=== PATIENT | male | born 1950 | race Caucasian/White ===

== ENCOUNTER 2018-11-03 09:41 | Outpatient (REF) | payer MEDICARE, SELFPAY ==
[2018-11-07 22:06] LABS: 6-monoacetylmorphine Not Detected ng/mL (Cutoff: 25); Amphetamines Negative ng/mL (Cutoff: 500); Barbiturates Negative ng/mL (Cutoff: 200); Benzodiazepines Negative ng/mL (Cutoff: 100); Buprenorphine Not Detected ng/mL (Cutoff: 5); Cocaine Negative ng/mL (Cutoff: 150); Codeine Not Detected ng/mL (Cutoff: 25); Comment Normal; Creatinine, U 175.4 mg/dL; Dihydrocodeine Not Detected ng/mL (Cutoff: 25); EDDP Not Detected ng/mL (Cutoff: 25); Fentanyl Not Detected ng/mL (Cutoff: 2); Hydrocodone Not Detected ng/mL (Cutoff: 25); Hydromorphone Not Detected ng/mL (Cutoff: 25); Hydromorphone-3-beta-glucuroni Not Detected ng/mL (Cutoff: 100); Meperidine Not Detected ng/mL (Cutoff: 25); Methadone Not Detected ng/mL (Cutoff: 25); Morphine Not Detected ng/mL (Cutoff: 25); N-desmethyltapentadol Not Detected ng/mL (Cutoff: 50); Naloxone Not Detected ng/mL (Cutoff: 25); Norbuprenorphine Not Detected ng/mL (Cutoff: 5); Norfentanyl Not Detected ng/mL (Cutoff: 2); Norhydrocodone Not Detected ng/mL (Cutoff: 25); Normeperidine Not Detected ng/mL (Cutoff: 25); Noroxycodone Present ng/mL (Cutoff: 25); Noroxymorphone Present ng/mL (Cutoff: 25); O-desmethyltramadol Not Detected ng/mL (Cutoff: 25); Phencyclidine Negative ng/mL (Cutoff: 25); Propoxyphene Not Detected ng/mL (Cutoff: 25); Specific Gravity 1.013; Tapentadol Not Detected ng/mL (Cutoff: 25); Tetrahydrocannabinol Negative ng/mL (Cutoff: 50); Tramadol Not Detected ng/mL (Cutoff: 25); pH 6.9
== END 2018-11-03 10:01 ==
LOC: LBN 09:41
PROVIDERS: PCP Internal Medicine; Visit Provider Nurse Practitioner Family
DX: Z79.891 Long term (current) use of opiate analgesic (principal); G89.29 Other chronic pain; M48.062 Spinal stenosis, lumbar region with neurogenic claudication
CPT/HCPCS: 80307; 80364

== ENCOUNTER 2019-03-16 09:39 | Outpatient (REF) | payer MEDICARE, BC, SELFPAY ==
[2019-03-18 12:23] LABS: 6-monoacetylmorphine Not Detected ng/mL (Cutoff: 25); Amphetamines Negative ng/mL (Cutoff: 500); Barbiturates Negative ng/mL (Cutoff: 200); Benzodiazepines Negative ng/mL (Cutoff: 100); Buprenorphine Not Detected ng/mL (Cutoff: 5); Cocaine Negative ng/mL (Cutoff: 150); Codeine Not Detected ng/mL (Cutoff: 25); Comment Normal; Creatinine, U 98.5 mg/dL; Dihydrocodeine Not Detected ng/mL (Cutoff: 25); EDDP Not Detected ng/mL (Cutoff: 25); Fentanyl Not Detected ng/mL (Cutoff: 2); Hydrocodone Not Detected ng/mL (Cutoff: 25); Hydromorphone Not Detected ng/mL (Cutoff: 25); Hydromorphone-3-beta-glucuroni Not Detected ng/mL (Cutoff: 100); Meperidine Not Detected ng/mL (Cutoff: 25); Methadone Not Detected ng/mL (Cutoff: 25); Morphine Not Detected ng/mL (Cutoff: 25); N-desmethyltapentadol Not Detected ng/mL (Cutoff: 50); Naloxone Not Detected ng/mL (Cutoff: 25); Norbuprenorphine Not Detected ng/mL (Cutoff: 5); Norfentanyl Not Detected ng/mL (Cutoff: 2); Norhydrocodone Not Detected ng/mL (Cutoff: 25); Normeperidine Not Detected ng/mL (Cutoff: 25); Noroxycodone Present ng/mL (Cutoff: 25); Noroxymorphone Not Detected ng/mL (Cutoff: 25); O-desmethyltramadol Not Detected ng/mL (Cutoff: 25); Phencyclidine Negative ng/mL (Cutoff: 25); Propoxyphene Not Detected ng/mL (Cutoff: 25); Specific Gravity 1.011; Tapentadol Not Detected ng/mL (Cutoff: 25); Tetrahydrocannabinol Negative ng/mL (Cutoff: 50); Tramadol Not Detected ng/mL (Cutoff: 25); pH 6.2
== END 2019-03-16 09:59 ==
LOC: LBN 09:39
PROVIDERS: PCP Internal Medicine; Visit Provider Nurse Practitioner Family
DX: M96.1 Postlaminectomy syndrome, not elsewhere classified (principal); M54.5 Low back pain; Z79.891 Long term (current) use of opiate analgesic
CPT/HCPCS: 80307; 80364

== ENCOUNTER 2019-06-08 09:21 | Outpatient (REF) | payer MEDICARE, BC, SELFPAY ==
[2019-06-12 01:40] LABS: 6-monoacetylmorphine Not Detected ng/mL (Cutoff: 25); Amphetamines Negative ng/mL (Cutoff: 500); Barbiturates Negative ng/mL (Cutoff: 200); Benzodiazepines Negative ng/mL (Cutoff: 100); Buprenorphine Not Detected ng/mL (Cutoff: 5); Cocaine Negative ng/mL (Cutoff: 150); Codeine Not Detected ng/mL (Cutoff: 25); Comment Normal; Creatinine, U 79.3 mg/dL; Dihydrocodeine Not Detected ng/mL (Cutoff: 25); EDDP Not Detected ng/mL (Cutoff: 25); Fentanyl Not Detected ng/mL (Cutoff: 2); Hydrocodone Not Detected ng/mL (Cutoff: 25); Hydromorphone Not Detected ng/mL (Cutoff: 25); Hydromorphone-3-beta-glucuroni Not Detected ng/mL (Cutoff: 100); Meperidine Not Detected ng/mL (Cutoff: 25); Methadone Not Detected ng/mL (Cutoff: 25); Morphine Not Detected ng/mL (Cutoff: 25); N-desmethyltapentadol Not Detected ng/mL (Cutoff: 50); Naloxone Not Detected ng/mL (Cutoff: 25); Norbuprenorphine Not Detected ng/mL (Cutoff: 5); Norfentanyl Not Detected ng/mL (Cutoff: 2); Norhydrocodone Not Detected ng/mL (Cutoff: 25); Normeperidine Not Detected ng/mL (Cutoff: 25); Noroxycodone Present ng/mL (Cutoff: 25); Noroxymorphone Not Detected ng/mL (Cutoff: 25); O-desmethyltramadol Not Detected ng/mL (Cutoff: 25); Phencyclidine Negative ng/mL (Cutoff: 25); Propoxyphene Not Detected ng/mL (Cutoff: 25); Specific Gravity 1.011; Tapentadol Not Detected ng/mL (Cutoff: 25); Tetrahydrocannabinol Negative ng/mL (Cutoff: 50); Tramadol Not Detected ng/mL (Cutoff: 25); pH 5.7
== END 2019-06-08 09:41 ==
LOC: LBN 09:21
PROVIDERS: PCP Internal Medicine; Visit Provider Nurse Practitioner Family
DX: M48.062 Spinal stenosis, lumbar region with neurogenic claudication (principal); Z79.891 Long term (current) use of opiate analgesic; G89.29 Other chronic pain
CPT/HCPCS: 80307; 80364

== ENCOUNTER 2019-08-03 09:49 | Outpatient (REF) | payer MEDICARE, BC, SELFPAY ==
[2019-08-07 15:15] LABS: 6-monoacetylmorphine Not Detected ng/mL (Cutoff: 25); Amphetamines Negative ng/mL (Cutoff: 500); Barbiturates Negative ng/mL (Cutoff: 200); Benzodiazepines Negative ng/mL (Cutoff: 100); Buprenorphine Not Detected ng/mL (Cutoff: 5); Cocaine Negative ng/mL (Cutoff: 150); Codeine Not Detected ng/mL (Cutoff: 25); Comment Normal; Creatinine, U 87.7 mg/dL; Dihydrocodeine Not Detected ng/mL (Cutoff: 25); EDDP Not Detected ng/mL (Cutoff: 25); Fentanyl Not Detected ng/mL (Cutoff: 2); Hydrocodone Not Detected ng/mL (Cutoff: 25); Hydromorphone Not Detected ng/mL (Cutoff: 25); Hydromorphone-3-beta-glucuroni Not Detected ng/mL (Cutoff: 100); Meperidine Not Detected ng/mL (Cutoff: 25); Methadone Not Detected ng/mL (Cutoff: 25); Morphine Not Detected ng/mL (Cutoff: 25); N-desmethyltapentadol Not Detected ng/mL (Cutoff: 50); Naloxone Not Detected ng/mL (Cutoff: 25); Norbuprenorphine Not Detected ng/mL (Cutoff: 5); Norfentanyl Not Detected ng/mL (Cutoff: 2); Norhydrocodone Not Detected ng/mL (Cutoff: 25); Normeperidine Not Detected ng/mL (Cutoff: 25); Noroxycodone Present ng/mL (Cutoff: 25); Noroxymorphone Not Detected ng/mL (Cutoff: 25); O-desmethyltramadol Not Detected ng/mL (Cutoff: 25); Phencyclidine Negative ng/mL (Cutoff: 25); Propoxyphene Not Detected ng/mL (Cutoff: 25); Tapentadol Not Detected ng/mL (Cutoff: 25); Tetrahydrocannabinol Negative ng/mL (Cutoff: 50); Tramadol Not Detected ng/mL (Cutoff: 25)
== END 2019-08-03 10:09 ==
LOC: LBN 09:49
PROVIDERS: PCP Internal Medicine; Visit Provider Nurse Practitioner Family
DX: M48.062 Spinal stenosis, lumbar region with neurogenic claudication (principal); G89.29 Other chronic pain; Z79.891 Long term (current) use of opiate analgesic
CPT/HCPCS: 80307; 80364

== ENCOUNTER 2019-11-01 10:33 | Outpatient (REF) | payer MEDICARE, BC, SELFPAY ==
[2019-11-04 08:45] LABS: 2-Hydroxy Ethyl Flurazepam Not Detected ng/mL (Cutoff: 10); 6-monoacetylmorphine Not Detected ng/mL (Cutoff: 25); Alpha-Hydroxy Midazolam Not Detected ng/mL (Cutoff: 10); Alpha-Hydroxy Triazolam Not Detected ng/mL (Cutoff: 10); Alpha-Hydroxyalprazolam Not Detected ng/mL (Cutoff: 10); Alpha-OH-alprazolam Glucuronid Not Detected ng/mL (Cutoff: 50); Alprazolam Not Detected ng/mL (Cutoff: 10); Amphetamines Negative ng/mL (Cutoff: 500); Barbiturates Negative ng/mL (Cutoff: 200); Buprenorphine Not Detected ng/mL (Cutoff: 5); Chlordiazepoxide Not Detected ng/mL (Cutoff: 10); Clobazam Not Detected ng/mL (Cutoff: 10); Clonazepam Not Detected ng/mL (Cutoff: 10); Cocaine Negative ng/mL (Cutoff: 150); Codeine Not Detected ng/mL (Cutoff: 25); Comment Normal; Creatinine, U 106.2 mg/dL; Diazepam Not Detected ng/mL (Cutoff: 10); Dihydrocodeine Not Detected ng/mL (Cutoff: 25); EDDP Not Detected ng/mL (Cutoff: 25); Fentanyl Not Detected ng/mL (Cutoff: 2); Flurazepam Not Detected ng/mL (Cutoff: 10); Hydrocodone Not Detected ng/mL (Cutoff: 25); Hydromorphone Not Detected ng/mL (Cutoff: 25); Hydromorphone-3-beta-glucuroni Not Detected ng/mL (Cutoff: 100); Lorazepam Not Detected ng/mL (Cutoff: 10); Lorazepam Glucuronide Not Detected ng/mL (Cutoff: 50); Meperidine Not Detected ng/mL (Cutoff: 25); Methadone Not Detected ng/mL (Cutoff: 25); Midazolam Not Detected ng/mL (Cutoff: 10); Morphine Not Detected ng/mL (Cutoff: 25); N-Desmethylclobazam Not Detected ng/mL (Cutoff: 200); N-desmethyltapentadol Not Detected ng/mL (Cutoff: 50); Naloxone Not Detected ng/mL (Cutoff: 25); Norbuprenorphine Not Detected ng/mL (Cutoff: 5); Norfentanyl Not Detected ng/mL (Cutoff: 2); Norhydrocodone Not Detected ng/mL (Cutoff: 25); Normeperidine Not Detected ng/mL (Cutoff: 25); Noroxycodone Present ng/mL (Cutoff: 25); Noroxymorphone Present ng/mL (Cutoff: 25); O-desmethyltramadol Not Detected ng/mL (Cutoff: 25); Oxazepam Glucuronide Not Detected ng/mL (Cutoff: 50); Phencyclidine Negative ng/mL (Cutoff: 25); Prazepam Not Detected ng/mL (Cutoff: 10); Propoxyphene Not Detected ng/mL (Cutoff: 25); Specific Gravity 1.013; Tapentadol Not Detected ng/mL (Cutoff: 25); Temazepam Not Detected ng/mL (Cutoff: 10); Temazepam Glucuronide Not Detected ng/mL (Cutoff: 50); Tetrahydrocannabinol Negative ng/mL (Cutoff: 50); Tramadol Not Detected ng/mL (Cutoff: 25); Triazolam Not Detected ng/mL (Cutoff: 10); Zolpidem Phenyl-4-Carboxy acid Not Detected ng/mL (Cutoff: 10); pH 6.2
== END 2019-11-01 10:53 ==
LOC: LBN 10:33
PROVIDERS: PCP Family Medicine; Visit Provider Nurse Practitioner Family
DX: G89.29 Other chronic pain (principal); Z79.891 Long term (current) use of opiate analgesic
CPT/HCPCS: 80307; 80347; 80364

== ENCOUNTER 2020-04-05 12:13 | Outpatient (REF) | payer MEDICARE, BC, SELFPAY ==
[2020-04-09 02:23] LABS: 2-Hydroxy Ethyl Flurazepam Not Detected ng/mL (Cutoff: 10); 6-monoacetylmorphine Not Detected ng/mL (Cutoff: 25); Alpha-Hydroxy Midazolam Not Detected ng/mL (Cutoff: 10); Alpha-Hydroxy Triazolam Not Detected ng/mL (Cutoff: 10); Alpha-Hydroxyalprazolam Not Detected ng/mL (Cutoff: 10); Alpha-OH-alprazolam Glucuronid Not Detected ng/mL (Cutoff: 50); Alprazolam Not Detected ng/mL (Cutoff: 10); Amphetamines Negative ng/mL (Cutoff: 500); Barbiturates Negative ng/mL (Cutoff: 200); Buprenorphine Not Detected ng/mL (Cutoff: 5); Chlordiazepoxide Not Detected ng/mL (Cutoff: 10); Clobazam Not Detected ng/mL (Cutoff: 10); Clonazepam Not Detected ng/mL (Cutoff: 10); Cocaine Negative ng/mL (Cutoff: 150); Codeine Not Detected ng/mL (Cutoff: 25); Comment Normal; Creatinine, U 81.9 mg/dL; Diazepam Not Detected ng/mL (Cutoff: 10); Dihydrocodeine Not Detected ng/mL (Cutoff: 25); EDDP Not Detected ng/mL (Cutoff: 25); Fentanyl Not Detected ng/mL (Cutoff: 2); Flurazepam Not Detected ng/mL (Cutoff: 10); Hydrocodone Not Detected ng/mL (Cutoff: 25); Hydromorphone Not Detected ng/mL (Cutoff: 25); Hydromorphone-3-beta-glucuroni Not Detected ng/mL (Cutoff: 100); Lorazepam Not Detected ng/mL (Cutoff: 10); Lorazepam Glucuronide Not Detected ng/mL (Cutoff: 50); Meperidine Not Detected ng/mL (Cutoff: 25); Methadone Not Detected ng/mL (Cutoff: 25); Midazolam Not Detected ng/mL (Cutoff: 10); Morphine Not Detected ng/mL (Cutoff: 25); N-Desmethylclobazam Not Detected ng/mL (Cutoff: 200); N-desmethyltapentadol Not Detected ng/mL (Cutoff: 50); Naloxone Not Detected ng/mL (Cutoff: 25); Norbuprenorphine Not Detected ng/mL (Cutoff: 5); Norfentanyl Not Detected ng/mL (Cutoff: 2); Norhydrocodone Not Detected ng/mL (Cutoff: 25); Normeperidine Not Detected ng/mL (Cutoff: 25); Noroxycodone Present ng/mL (Cutoff: 25); Noroxymorphone Not Detected ng/mL (Cutoff: 25); O-desmethyltramadol Not Detected ng/mL (Cutoff: 25); Oxazepam Glucuronide Not Detected ng/mL (Cutoff: 50); Phencyclidine Negative ng/mL (Cutoff: 25); Prazepam Not Detected ng/mL (Cutoff: 10); Propoxyphene Not Detected ng/mL (Cutoff: 25); Specific Gravity 1.012; Tapentadol Not Detected ng/mL (Cutoff: 25); Temazepam Not Detected ng/mL (Cutoff: 10); Temazepam Glucuronide Not Detected ng/mL (Cutoff: 50); Tetrahydrocannabinol Negative ng/mL (Cutoff: 50); Tramadol Not Detected ng/mL (Cutoff: 25); Triazolam Not Detected ng/mL (Cutoff: 10); Zolpidem Phenyl-4-Carboxy acid Not Detected ng/mL (Cutoff: 10); pH 6.5
== END 2020-04-05 12:33 ==
LOC: LBN 12:13
PROVIDERS: PCP Family Medicine; Visit Provider Nurse Practitioner Family
DX: Z79.891 Long term (current) use of opiate analgesic (principal)
CPT/HCPCS: 80307; 80347; 80364

== ENCOUNTER 2020-05-03 11:02 | Outpatient (REF) | payer MEDICARE, BC, SELFPAY ==
[2020-05-03 20:36] LABS: ALT 40 U/L (16-63); AST 22 U/L (15-37); Albumin 3.8 g/dL (3.4-5.0); Alkaline Phosphatase 47 U/L (46-116); BUN 30 mg/dL (7-18); Bilirubin, Total 0.7 mg/dL (0.2-1.0); CREATININE 1.56 mg/dL (0.70-1.30); Calcium 8.8 mg/dL (8.5-10.1); Calculated LDL 83 mg/dL (<100); Chloride 105 mmol/L (98-107); Cholesterol 175 mg/dL (<200); Estimated GFR 44.35 (mL/min/1.73m2); Glucose 171 mg/dL (74-106); HDL Cholesterol 33 mg/dL (40-60); Potassium 3.8 mmol/L (3.5-5.1); Sodium 142 mmol/L (136-145); Total Protein 6.5 g/dL (6.4-8.2); Triglyceride 296 mg/dL (<150)
[2020-05-03 21:06] LABS: Hemoglobin A1C 5.8 % (3.8-5.6)
== END 2020-05-03 11:22 ==
LOC: NCHCN 11:02
PROVIDERS: PCP Family Medicine; Visit Provider Nurse Practitioner Family
DX: I10 Essential (primary) hypertension (principal); E78.5 Hyperlipidemia, unspecified; R73.9 Hyperglycemia, unspecified
CPT/HCPCS: 80053; 80061; 83036

== ENCOUNTER 2020-07-04 08:28 | Outpatient (REF) | payer MEDICARE, BC, SELFPAY ==
[2020-07-07 13:16] LABS: 2-Hydroxy Ethyl Flurazepam Not Detected ng/mL (Cutoff: 10); 6-monoacetylmorphine Not Detected ng/mL (Cutoff: 25); Alpha-Hydroxy Midazolam Not Detected ng/mL (Cutoff: 10); Alpha-Hydroxy Triazolam Not Detected ng/mL (Cutoff: 10); Alpha-Hydroxyalprazolam Not Detected ng/mL (Cutoff: 10); Alpha-OH-alprazolam Glucuronid Not Detected ng/mL (Cutoff: 50); Alprazolam Not Detected ng/mL (Cutoff: 10); Amphetamines Negative ng/mL (Cutoff: 500); Barbiturates Negative ng/mL (Cutoff: 200); Buprenorphine Not Detected ng/mL (Cutoff: 5); Chlordiazepoxide Not Detected ng/mL (Cutoff: 10); Clobazam Not Detected ng/mL (Cutoff: 10); Clonazepam Not Detected ng/mL (Cutoff: 10); Cocaine Negative ng/mL (Cutoff: 150); Codeine Not Detected ng/mL (Cutoff: 25); Comment Normal; Creatinine, U 189.1 mg/dL; Diazepam Not Detected ng/mL (Cutoff: 10); Dihydrocodeine Not Detected ng/mL (Cutoff: 25); EDDP Not Detected ng/mL (Cutoff: 25); Fentanyl Not Detected ng/mL (Cutoff: 2); Flurazepam Not Detected ng/mL (Cutoff: 10); Hydrocodone Not Detected ng/mL (Cutoff: 25); Hydromorphone Not Detected ng/mL (Cutoff: 25); Hydromorphone-3-beta-glucuroni Not Detected ng/mL (Cutoff: 100); Lorazepam Not Detected ng/mL (Cutoff: 10); Lorazepam Glucuronide Not Detected ng/mL (Cutoff: 50); Meperidine Not Detected ng/mL (Cutoff: 25); Methadone Not Detected ng/mL (Cutoff: 25); Midazolam Not Detected ng/mL (Cutoff: 10); Morphine Not Detected ng/mL (Cutoff: 25); N-Desmethylclobazam Not Detected ng/mL (Cutoff: 200); N-desmethyltapentadol Not Detected ng/mL (Cutoff: 50); Naloxone Not Detected ng/mL (Cutoff: 25); Norbuprenorphine Not Detected ng/mL (Cutoff: 5); Norfentanyl Not Detected ng/mL (Cutoff: 2); Norhydrocodone Not Detected ng/mL (Cutoff: 25); Normeperidine Not Detected ng/mL (Cutoff: 25); Noroxycodone Present ng/mL (Cutoff: 25); Noroxymorphone Present ng/mL (Cutoff: 25); O-desmethyltramadol Not Detected ng/mL (Cutoff: 25); Oxazepam Glucuronide Not Detected ng/mL (Cutoff: 50); Phencyclidine Negative ng/mL (Cutoff: 25); Prazepam Not Detected ng/mL (Cutoff: 10); Propoxyphene Not Detected ng/mL (Cutoff: 25); Tapentadol Not Detected ng/mL (Cutoff: 25); Temazepam Not Detected ng/mL (Cutoff: 10); Temazepam Glucuronide Not Detected ng/mL (Cutoff: 50); Tetrahydrocannabinol Negative ng/mL (Cutoff: 50); Tramadol Not Detected ng/mL (Cutoff: 25); Triazolam Not Detected ng/mL (Cutoff: 10); Zolpidem Phenyl-4-Carboxy acid Not Detected ng/mL (Cutoff: 10); pH 5.4
== END 2020-07-04 08:48 ==
LOC: LBN 08:28
PROVIDERS: PCP Family Medicine; Visit Provider Nurse Practitioner Family
DX: Z79.891 Long term (current) use of opiate analgesic (principal)
CPT/HCPCS: 80307; 80347; 80364

== ENCOUNTER 2020-12-18 10:52 | Outpatient (REF) | payer MEDICARE, BC, SELFPAY ==
[2020-12-20 15:43] LABS: 2-Hydroxy Ethyl Flurazepam Not Detected ng/mL (Cutoff: 10); 6-monoacetylmorphine Not Detected ng/mL (Cutoff: 25); Alpha-Hydroxy Midazolam Not Detected ng/mL (Cutoff: 10); Alpha-Hydroxy Triazolam Not Detected ng/mL (Cutoff: 10); Alpha-Hydroxyalprazolam Not Detected ng/mL (Cutoff: 10); Alpha-OH-alprazolam Glucuronid Not Detected ng/mL (Cutoff: 50); Alprazolam Not Detected ng/mL (Cutoff: 10); Amphetamines Negative ng/mL (Cutoff: 500); Barbiturates Negative ng/mL (Cutoff: 200); Buprenorphine Not Detected ng/mL (Cutoff: 5); Chlordiazepoxide Not Detected ng/mL (Cutoff: 10); Clobazam Not Detected ng/mL (Cutoff: 10); Clonazepam Not Detected ng/mL (Cutoff: 10); Cocaine Negative ng/mL (Cutoff: 150); Codeine Not Detected ng/mL (Cutoff: 25); Comment Normal; Creatinine, U 329.3 mg/dL; Diazepam Not Detected ng/mL (Cutoff: 10); Dihydrocodeine Not Detected ng/mL (Cutoff: 25); EDDP Not Detected ng/mL (Cutoff: 25); Fentanyl Not Detected ng/mL (Cutoff: 2); Flurazepam Not Detected ng/mL (Cutoff: 10); Hydrocodone Not Detected ng/mL (Cutoff: 25); Hydromorphone Not Detected ng/mL (Cutoff: 25); Hydromorphone-3-beta-glucuroni Not Detected ng/mL (Cutoff: 100); Lorazepam Not Detected ng/mL (Cutoff: 10); Lorazepam Glucuronide Not Detected ng/mL (Cutoff: 50); Meperidine Not Detected ng/mL (Cutoff: 25); Methadone Not Detected ng/mL (Cutoff: 25); Midazolam Not Detected ng/mL (Cutoff: 10); Morphine Not Detected ng/mL (Cutoff: 25); N-Desmethylclobazam Not Detected ng/mL (Cutoff: 200); N-desmethyltapentadol Not Detected ng/mL (Cutoff: 50); Naloxone Not Detected ng/mL (Cutoff: 25); Norbuprenorphine Not Detected ng/mL (Cutoff: 5); Norfentanyl Not Detected ng/mL (Cutoff: 2); Norhydrocodone Not Detected ng/mL (Cutoff: 25); Normeperidine Not Detected ng/mL (Cutoff: 25); Noroxycodone Present ng/mL (Cutoff: 25); Noroxymorphone Present ng/mL (Cutoff: 25); O-desmethyltramadol Not Detected ng/mL (Cutoff: 25); Oxazepam Glucuronide Not Detected ng/mL (Cutoff: 50); Phencyclidine Negative ng/mL (Cutoff: 25); Prazepam Not Detected ng/mL (Cutoff: 10); Propoxyphene Not Detected ng/mL (Cutoff: 25); Specific Gravity 1.025; Tapentadol Not Detected ng/mL (Cutoff: 25); Temazepam Not Detected ng/mL (Cutoff: 10); Temazepam Glucuronide Not Detected ng/mL (Cutoff: 50); Tetrahydrocannabinol Negative ng/mL (Cutoff: 50); Tramadol Not Detected ng/mL (Cutoff: 25); Triazolam Not Detected ng/mL (Cutoff: 10); Zolpidem Phenyl-4-Carboxy acid Not Detected ng/mL (Cutoff: 10); pH 5.5
== END 2020-12-18 11:12 ==
LOC: LBN 10:52
PROVIDERS: PCP Family Medicine; Visit Provider Nurse Practitioner Family
DX: M96.1 Postlaminectomy syndrome, not elsewhere classified (principal); Z79.891 Long term (current) use of opiate analgesic
CPT/HCPCS: 80307; 80347; 80364

== ENCOUNTER → 2021-01-01 09:03 | Outpatient (BNVA) | payer MEDICARE, BC, SELFPAY | PROVIDERS: PCP Nurse Practitioner Family; Referring Provider Family Medicine; Visit Provider Nurse Practitioner Gerontology | DX: N40.1 Benign prostatic hyperplasia with lower urinary tract symptoms (principal); N13.8 Other obstructive and reflux uropathy | CPT/HCPCS: 81003; 99205 ==

== ENCOUNTER 2021-01-10 02:53 | Outpatient (CLI) | payer MEDICARE, BC, SELFPAY ==
[2021-01-10 19:36] LABS: PSA, Screening 0.7 ng/mL (0.0-6.5)
== END 2021-01-10 02:54 | disposition home or self-care (01) ==
LOC: LBO 02:53
PROVIDERS: PCP Nurse Practitioner Family; Visit Provider Nurse Practitioner Gerontology
DX: N40.1 Benign prostatic hyperplasia with lower urinary tract symptoms (principal); N13.8 Other obstructive and reflux uropathy; Z12.5 Encounter for screening for malignant neoplasm of prostate
CPT/HCPCS: 36415; 84153

== ENCOUNTER 2021-03-13 18:05 | Outpatient (REF) | payer MEDICARE, BC, SELFPAY ==
[2021-03-16 11:26] LABS: 2-Hydroxy Ethyl Flurazepam Not Detected ng/mL (Cutoff: 10); 3,4-methylenedioxyamphetamine Not Detected ng/mL (Cutoff: 100); 3,4-methylenedioxyethylampheta Not Detected ng/mL (Cutoff: 100); 3,4-methylenedioxymethamphetam Not Detected ng/mL (Cutoff: 100); 6-monoacetylmorphine Not Detected ng/mL (Cutoff: 25); Alpha-Hydroxy Midazolam Not Detected ng/mL (Cutoff: 10); Alpha-Hydroxy Triazolam Not Detected ng/mL (Cutoff: 10); Alpha-Hydroxyalprazolam Not Detected ng/mL (Cutoff: 10); Alpha-OH-alprazolam Glucuronid Not Detected ng/mL (Cutoff: 50); Alprazolam Not Detected ng/mL (Cutoff: 10); Amphetamine Not Detected ng/mL (Cutoff: 100); Barbiturates Negative ng/mL (Cutoff: 200); Buprenorphine Not Detected ng/mL (Cutoff: 5); Chlordiazepoxide Not Detected ng/mL (Cutoff: 10); Clobazam Not Detected ng/mL (Cutoff: 10); Clonazepam Not Detected ng/mL (Cutoff: 10); Cocaine Negative ng/mL (Cutoff: 150); Codeine Not Detected ng/mL (Cutoff: 25); Comment Normal; Creatinine, U 96.1 mg/dL; Diazepam Not Detected ng/mL (Cutoff: 10); Dihydrocodeine Not Detected ng/mL (Cutoff: 25); EDDP Not Detected ng/mL (Cutoff: 25); Ephedrine Not Detected ng/mL (Cutoff: 100); Fentanyl Not Detected ng/mL (Cutoff: 2); Flurazepam Not Detected ng/mL (Cutoff: 10); Hydrocodone Not Detected ng/mL (Cutoff: 25); Hydromorphone Not Detected ng/mL (Cutoff: 25); Hydromorphone-3-beta-glucuroni Not Detected ng/mL (Cutoff: 100); Lorazepam Not Detected ng/mL (Cutoff: 10); Lorazepam Glucuronide Not Detected ng/mL (Cutoff: 50); Meperidine Not Detected ng/mL (Cutoff: 25); Methadone Not Detected ng/mL (Cutoff: 25); Methamphetamine Not Detected ng/mL (Cutoff:100); Methylphenidate Not Detected ng/mL (Cutoff: 20); Midazolam Not Detected ng/mL (Cutoff: 10); Morphine Not Detected ng/mL (Cutoff: 25); N-Desmethylclobazam Not Detected ng/mL (Cutoff: 200); N-desmethyltapentadol Not Detected ng/mL (Cutoff: 50); Naloxone Not Detected ng/mL (Cutoff: 25); Norbuprenorphine Not Detected ng/mL (Cutoff: 5); Norfentanyl Not Detected ng/mL (Cutoff: 2); Norhydrocodone Not Detected ng/mL (Cutoff: 25); Normeperidine Not Detected ng/mL (Cutoff: 25); Noroxycodone Present ng/mL (Cutoff: 25); Noroxymorphone Present ng/mL (Cutoff: 25); O-desmethyltramadol Not Detected ng/mL (Cutoff: 25); Oxazepam Glucuronide Not Detected ng/mL (Cutoff: 50); Phencyclidine (PCP) Not Detected ng/mL (Cutoff: 20); Phentermine Present ng/mL (Cutoff: 100); Prazepam Not Detected ng/mL (Cutoff: 10); Propoxyphene Not Detected ng/mL (Cutoff: 25); Pseudoephedrine Not Detected ng/mL (Cutoff: 100); Ritalinic Acid Not Detected ng/mL (Cutoff: 100); Specific Gravity 1.016; Tapentadol Not Detected ng/mL (Cutoff: 25); Temazepam Not Detected ng/mL (Cutoff: 10); Temazepam Glucuronide Not Detected ng/mL (Cutoff: 50); Tetrahydrocannabinol Negative ng/mL (Cutoff: 50); Tramadol Not Detected ng/mL (Cutoff: 25); Triazolam Not Detected ng/mL (Cutoff: 10); Zolpidem Phenyl-4-Carboxy acid Not Detected ng/mL (Cutoff: 10); pH 6.2
== END 2021-03-13 18:06 | disposition home or self-care (01) ==
LOC: LBN 18:05
PROVIDERS: PCP Nurse Practitioner Family; Visit Provider Nurse Practitioner Family
DX: Z79.891 Long term (current) use of opiate analgesic (principal); M96.1 Postlaminectomy syndrome, not elsewhere classified
CPT/HCPCS: 80307; 80347; 80364

== ENCOUNTER → 2021-04-10 09:31 | Outpatient (BNVA) | payer MEDICARE, BC, SELFPAY | PROVIDERS: PCP Nurse Practitioner Family; Referring Provider Nurse Practitioner Family; Visit Provider Nurse Practitioner Gerontology | DX: N40.1 Benign prostatic hyperplasia with lower urinary tract symptoms (principal); N13.8 Other obstructive and reflux uropathy; R35.1 Nocturia | CPT/HCPCS: 99213 ==

== ENCOUNTER 2021-06-05 12:58 | Outpatient (REF) | payer MEDICARE, BC, SELFPAY ==
[2021-06-11 13:12] LABS: 2-Hydroxy Ethyl Flurazepam Not Detected ng/mL (Cutoff: 10); 3,4-methylenedioxyamphetamine Not Detected ng/mL (Cutoff: 100); 3,4-methylenedioxyethylampheta Not Detected ng/mL (Cutoff: 100); 3,4-methylenedioxymethamphetam Not Detected ng/mL (Cutoff: 100); 6-monoacetylmorphine Not Detected ng/mL (Cutoff: 25); Alpha-Hydroxy Midazolam Not Detected ng/mL (Cutoff: 10); Alpha-Hydroxy Triazolam Not Detected ng/mL (Cutoff: 10); Alpha-Hydroxyalprazolam Not Detected ng/mL (Cutoff: 10); Alpha-OH-alprazolam Glucuronid Not Detected ng/mL (Cutoff: 50); Alprazolam Not Detected ng/mL (Cutoff: 10); Amphetamine Not Detected ng/mL (Cutoff: 100); Barbiturates Negative ng/mL (Cutoff: 200); Buprenorphine Not Detected ng/mL (Cutoff: 5); Chlordiazepoxide Not Detected ng/mL (Cutoff: 10); Clobazam Not Detected ng/mL (Cutoff: 10); Clonazepam Not Detected ng/mL (Cutoff: 10); Cocaine Negative ng/mL (Cutoff: 150); Codeine Not Detected ng/mL (Cutoff: 25); Comment Normal; Diazepam Not Detected ng/mL (Cutoff: 10); Dihydrocodeine Not Detected ng/mL (Cutoff: 25); EDDP Not Detected ng/mL (Cutoff: 25); Ephedrine Not Detected ng/mL (Cutoff: 100); Fentanyl Not Detected ng/mL (Cutoff: 2); Flurazepam Not Detected ng/mL (Cutoff: 10); Hydrocodone Not Detected ng/mL (Cutoff: 25); Hydromorphone Not Detected ng/mL (Cutoff: 25); Hydromorphone-3-beta-glucuroni Not Detected ng/mL (Cutoff: 100); Lorazepam Not Detected ng/mL (Cutoff: 10); Lorazepam Glucuronide Not Detected ng/mL (Cutoff: 50); Meperidine Not Detected ng/mL (Cutoff: 25); Methadone Not Detected ng/mL (Cutoff: 25); Methamphetamine Not Detected ng/mL (Cutoff:100); Methylphenidate Not Detected ng/mL (Cutoff: 20); Midazolam Not Detected ng/mL (Cutoff: 10); Morphine Not Detected ng/mL (Cutoff: 25); N-Desmethylclobazam Not Detected ng/mL (Cutoff: 200); N-desmethyltapentadol Not Detected ng/mL (Cutoff: 50); Naloxone Not Detected ng/mL (Cutoff: 25); Norbuprenorphine Not Detected ng/mL (Cutoff: 5); Norfentanyl Not Detected ng/mL (Cutoff: 2); Norhydrocodone Not Detected ng/mL (Cutoff: 25); Normeperidine Not Detected ng/mL (Cutoff: 25); Noroxycodone Present ng/mL (Cutoff: 25); Noroxymorphone Present ng/mL (Cutoff: 25); O-desmethyltramadol Not Detected ng/mL (Cutoff: 25); Oxazepam Glucuronide Not Detected ng/mL (Cutoff: 50); Phencyclidine (PCP) Not Detected ng/mL (Cutoff: 20); Phentermine Not Detected ng/mL (Cutoff: 100); Prazepam Not Detected ng/mL (Cutoff: 10); Propoxyphene Not Detected ng/mL (Cutoff: 25); Pseudoephedrine Not Detected ng/mL (Cutoff: 100); Ritalinic Acid Not Detected ng/mL (Cutoff: 100); Specific Gravity 1.012; Tapentadol Not Detected ng/mL (Cutoff: 25); Temazepam Not Detected ng/mL (Cutoff: 10); Temazepam Glucuronide Not Detected ng/mL (Cutoff: 50); Tetrahydrocannabinol Negative ng/mL (Cutoff: 50); Tramadol Not Detected ng/mL (Cutoff: 25); Triazolam Not Detected ng/mL (Cutoff: 10); Zolpidem Phenyl-4-Carboxy acid Not Detected ng/mL (Cutoff: 10); pH 6.5
== END 2021-06-05 12:59 | disposition home or self-care (01) ==
LOC: LBN 12:58
PROVIDERS: PCP Nurse Practitioner Family; Visit Provider Nurse Practitioner Family
DX: M96.1 Postlaminectomy syndrome, not elsewhere classified (principal); Z79.899 Other long term (current) drug therapy
CPT/HCPCS: 80307; 80347; 80364

== ENCOUNTER 2021-07-01 09:14 | Outpatient (REF) | payer MEDICARE, BC, SELFPAY ==
[2021-07-01 19:38] LABS: Hemoglobin A1C 5.8 % (<5.7)
[2021-07-01 19:51] LABS: ALT 36 U/L (16-63); AST 18 U/L (15-37); Albumin 3.9 g/dL (3.4-5.0); Alkaline Phosphatase 59 U/L (46-116); Anion Gap 8.9 mmol/L (3-11); BUN 23 mg/dL (7-18); Bilirubin, Total 0.6 mg/dL (0.2-1.0); CO2 26.1 mmol/L (21.0-32.0); CREATININE 1.4 mg/dL (0.70-1.30); Calcium 8.6 mg/dL (8.5-10.1); Calculated LDL 80 mg/dL (<100); Chloride 106 mmol/L (98-107); Cholesterol 166 mg/dL (<200); Glucose 108 mg/dL (74-106); HDL Cholesterol 44 mg/dL (40-60); Potassium 4.2 mmol/L (3.5-5.1); Sodium 141 mmol/L (136-145); Total Protein 6.8 g/dL (6.4-8.2); Triglyceride 210 mg/dL (<150)
[2021-07-01 19:53] LABS: Microalb ug/mg Crea 4.4 ug/mg Cr
== END 2021-07-01 09:15 | disposition home or self-care (01) ==
LOC: NCHCN 09:14
PROVIDERS: PCP Nurse Practitioner Family; Visit Provider Nurse Practitioner Family
DX: E78.5 Hyperlipidemia, unspecified (principal); R73.03 Prediabetes; R94.4 Abnormal results of kidney function studies
CPT/HCPCS: 80053; 80061; 82043; 82570; 83036

== ENCOUNTER 2021-08-20 13:04 | Outpatient (REF) | payer MEDICARE, BC, SELFPAY ==
[2021-08-22 10:48] LABS: COVID-19 RT-PCR UVMMC Result Negative (Negative)
== END 2021-08-20 13:05 | disposition home or self-care (01) ==
LOC: NCHCN 13:04
PROVIDERS: PCP Nurse Practitioner Family; Visit Provider Nurse Practitioner Family
DX: Z20.822 Contact with and (suspected) exposure to COVID-19 (principal); J02.9 Acute pharyngitis, unspecified
CPT/HCPCS: U0003

== ENCOUNTER 2021-10-24 01:39 | Outpatient (CLI) | payer MEDICARE, BC, SELFPAY ==
--- NOTE | 2021-10-24 10:45 | DI.NM_ITS ---
APPROVED REPORT Exam: Pharmacologic paired w/ low level exercise Patient Location: Out-Patient Room/Bed: Stress Nurse: Neelam Hunter RN Ordering Provider:REY SCHRADER, Contact Number: [phone] BMI: 34.56 Baseline Rhythm: 1st Degree AV Block, RBBB Indications: ANGINA, RBBB on EKG Medical History Medical History: HLD, HTN, Obesity, DIAMOND, Prediabetes, ED, Peripheral Neuropathy, Chronic pain Cardiac Medications: Metoprolol tartrate, Lisinopril, Hydrochlorothiazide, Atorvastatin Allergies: No known drug allergies Cardiac Risk Factors: HTN, Hyperlipidemia, DM, Obesity Previous Cardiac Procedures: None Pretest Chest Pain Characteristics: No chest pain Exercise History: Sedentary Physical Disabilities: Legs Lung Sounds: Diminished Heart Sounds: Regular Stress Test Details Test: Pharmacologic stress was paired with low level exercise. Reason for pharmacologic stress test: physical limitation. Nuclear Acquisition: Rest Tc-99m/Stress Tc-99m 1 day Rest Isotope: Tc-99m Sestamibi. Dose: 11.8 Date: 10/24/2021 Injection Time: 1110 Stress Isotope: Tc-99m Sestamibi. Dose: 36.0 Date: 10/24/2021 Injection Time: 1323 HR Resting HR Supine: 61 bpm Max Heart Rate (APMHR): 150.950279 bpm Resting HR Standin bpm Target HR (85% APMHR): 127.417287 bpm Max HR Achieved: 105 bpm % of APMHR: 70.00 Recovery HR: 85 bpm BP Resting BP Supine: 130/82 mmHg Resting BP Standin/74 mmHg Max BP: 132/84 mmHg Recovery BP: 132/84 mmHg ECG Resting ECst degree AV block, RBBB Stress ECG: Sinus Rhythm, Sinus Tachycardia, RBBB ST Change: No significant ST segment changes noted Arrhythmia: None Comment: artifact during ambulation. Recovery ECG: Sinus Rhythm, RBBB Recovery ST Change: No significant ST segment changes noted Recovery Arrhythmia: rare PVC Clinical Stress Symptoms: None Rate Pressure Product: [id number] Stress ECG Conclusion 1. The resting electrocardiogram showed a right bundle branch block 2. Patient underwent stress testing using regadenoson and low level exercise 3. Peak heart rate achieved was 70% of predicted for age 4. Electrocardiographically the test was nondiagnostic due to inadequate heart rate 5. There were no significant dysrhythmias Stress Test Summary STAGE HR BP Symptoms NOTES Supine 61 130/82 1 min post Lexiscan injection 103 122/84 3 min post Lexiscan injection 98 120/78 6 min post Lexiscan injection 85 132/84 Standing 74 110/74 Lexisan injection paired w/ low level exercise. Patient ambulated on treadmill at 0.8mph, 0% grade, a nd did not endorse any symptoms. MPI Conclusion Myocardial perfusion is abnormal. 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
[2021-10-24] MEDS: Regadenoson 0.4 MG/5 ML SYR IVP (13:18)
== END 2021-10-24 01:59 ==
PROVIDERS: PCP Nurse Practitioner Family; Visit Provider Family Medicine
DX: I20.8 Other forms of angina pectoris (principal); I45.10 Unspecified right bundle-branch block; I10 Essential (primary) hypertension; E78.5 Hyperlipidemia, unspecified; E11.9 Type 2 diabetes mellitus without complications; E66.9 Obesity, unspecified; Z68.34 Body mass index [BMI] 34.0-34.9, adult; I44.0 Atrioventricular block, first degree; R94.39 Abnormal result of other cardiovascular function study
CPT/HCPCS: 78452; 93016; 93018; 93017; J2785

== ENCOUNTER 2021-11-18 11:23 | Outpatient (CLI) | payer MEDICARE, BC, SELFPAY ==
--- NOTE | 2021-11-18 11:15 | RT.EKG_ITS ---
APPROVED REPORT Exam: Resting ECG Reason for Exam: angina Patient Location: O HR:66 bpm ECG Measurements Heart Rate 66 AXIS MO 196 P -29 QRSd 151 QRS -56 QT 432 T -14 QTc 453 Conclusion Sinus rhythm...normal P axis, V-rate 50- 99 RBBB and LAFB...QRSd >120mS, axis(-40,240)
== END 2021-11-18 11:24 | disposition home or self-care (01) ==
PROVIDERS: PCP Family Medicine; Visit Provider Internal Medicine Cardiovascular Disease
DX: I25.119 Atherosclerotic heart disease of native coronary artery with unspecified angina pectoris (principal); I45.10 Unspecified right bundle-branch block; I44.4 Left anterior fascicular block; R94.39 Abnormal result of other cardiovascular function study; Z01.810 Encounter for preprocedural cardiovascular examination; Z79.891 Long term (current) use of opiate analgesic
CPT/HCPCS: 93010

== ENCOUNTER → 2021-11-18 13:37 | Outpatient (BNVA) | payer MEDICARE, BC, SELFPAY | PROVIDERS: PCP Family Medicine; Referring Provider Nurse Practitioner Family; Visit Provider Internal Medicine Cardiovascular Disease | DX: I25.10 Atherosclerotic heart disease of native coronary artery without angina pectoris (principal); R94.39 Abnormal result of other cardiovascular function study; Z01.810 Encounter for preprocedural cardiovascular examination | CPT/HCPCS: 36415; 93005; 99203; 99214 ==

== ENCOUNTER 2021-11-18 16:10 | Outpatient (REF) | payer MEDICARE, BC, SELFPAY ==
[2021-11-18 17:22] LABS: HCT 43.9 % (40.0-50.0); HGB 14.6 g/dL (13.5-17.5); MCH 31.1 pg (27.0-33.0); MCHC 33.3 % (32.0-36.0); MCV 93.4 fL (80-95); MPV 9.7 fL (8.0-11.0); Platelet Count 203 10^3/uL (130-400); RDW 12.8 % (11.8-14.1); RDW-SD 43.9 fL; WBC 8.88 10^3/uL (4.4-10.8)
[2021-11-18 17:23] LABS: INR 1.1 (0.9-1.1); PTT Activated 24.5 sec (21.0-27.5)
[2021-11-18 19:11] LABS: Anion Gap 6.7 mmol/L (3-11); BUN 29 mg/dL (7-18); CO2 28.3 mmol/L (21.0-32.0); CREATININE 1.3 mg/dL (0.70-1.30); Calcium 9.1 mg/dL (8.5-10.1); Chloride 101 mmol/L (98-107); Estimated GFR 54.57 (mL/min/1.73m2); Glucose 123 mg/dL (74-106); Potassium 4.1 mmol/L (3.5-5.1); Sodium 136 mmol/L (136-145)
== END 2021-11-18 16:11 | disposition home or self-care (01) ==
LOC: LBN 16:10
PROVIDERS: PCP Family Medicine; Visit Provider Internal Medicine Cardiovascular Disease
DX: I25.10 Atherosclerotic heart disease of native coronary artery without angina pectoris (principal); R94.39 Abnormal result of other cardiovascular function study; Z01.810 Encounter for preprocedural cardiovascular examination; Z79.891 Long term (current) use of opiate analgesic
CPT/HCPCS: 80048; 85027; 86200; 85610; 85730; 86038; 86225; 86431

== ENCOUNTER → 2022-01-09 11:41 | Outpatient (BNVA) | payer MEDICARE, BC, SELFPAY | PROVIDERS: PCP Family Medicine; Visit Provider Internal Medicine Cardiovascular Disease | DX: R69 Illness, unspecified (principal) | CPT/HCPCS: 99215 ==

== ENCOUNTER 2022-01-09 12:24 | Emergency (ER) | payer MEDICARE, BC, SELFPAY ==
[2022-01-09] VITALS (11 sets, daily range): BP systolic 113–147; BP diastolic 68–85; PULSE 64–76; RESP 12–26; TEMP 36.7; O2SAT 95–100
--- NOTE | 2022-01-09 12:15 | DI.US_ITS ---
Exam(s) US LOWER EXTREMITY VENOUS RT EXAM: US LOWER EXTREMITY VENOUS RT CLINICAL HISTORY: RLE swelling TECHNIQUE: Right lower extremity venous ultrasound performed using grayscale, color-flow, and spectr al Doppler analysis. COMPARISON: No exams were available for comparison FINDINGS: The right common femoral, femoral and popliteal veins demonstrate normal compressibility, augmentatio n, and color Doppler. The posterior tibial veins are patent. The saphenofemoral junction is unremark able. There is no evidence of a Barragan cyst. The soft tissues are unremarkable. There is a thrombus measuring 4 cm in length in a superficial vein in the calf. IMPRESSION: 1. No DVT. 2. Superficial thrombophlebitis. DATA REPOSITORY:
--- NOTE | 2022-01-09 12:15 | RT.EKG_ITS ---
APPROVED REPORT Exam: Resting ECG Reason for Exam: HX CHF Patient Location: E HR:73 bpm ECG Measurements Heart Rate 73 AXIS TN 235 P 41 QRSd 146 QRS -80 QT 451 T -73 QTc 499 Conclusion Sinus rhythm...normal P axis Prolonged TN interval...TN >220, RBBB and LAFB
--- NOTE | 2022-01-09 12:15 | DI.CT_ITS ---
Exam(s) CT CHEST PE CTA EXAM: CT CHEST PE CTA CLINICAL HISTORY: SOB, R/O PE, Recent CABG. TECHNIQUE: Imaging Protocol: Axial CT angiography was performed with multi-slice acquisition and mu lti-planar and/or 3D reconstructions. CONTRAST MATERIAL: Intravenous: Omnipaque 350 Contrast volume:100 mL COMPARISON: No priors for comparison. FINDINGS: The examination is limited due to patient motion artifact. Tracheobronchial tree: Patent where visualized. Pulmonary parenchyma: There is a small infiltrate in the periphery of the left upper lobe. There are small bilateral pleural effusions and subjacent infiltrates, right greater than left. These infiltr ates may represent atelectasis or pneumonia. No architectural distortion. Pulmonary Arteries: There is a filling defect seen in a branch of the right upper lobe pulmonary trudy ry suspicious for a nonocclusive thrombus. (Series 6, image 209). Otherwise the pulmonary arteries appear patent. Mediastinum and Serenity: No dominant adenopathy or fluid collection. The esophagus is unremarkable. Todd rgical clips are seen in the anterior mediastinum. Visualized thyroid gland: Unremarkable. Pleura: Please see above. No pneumothorax. Heart: The heart is not dilated. Coronary artery calcifications are present. There is no evidence of right heart strain. No pericardial effusion. Aorta: Thoracic aorta non-dilated. No evidence of dissection. Atherosclerosis. Upper abdomen: Diverticulosis of the colon is noted but no evidence of acute diverticulitis. Soft tissues: Unremarkable. Bones: Within normal limits for the patient's age.Sternal wires are in place. IMPRESSION: 1. There is a filling defect seen in a branch of a right upper lobe pulmonary artery suspicious for a pulmonary embolus. No evidence of right heart failure. 2. Small bilateral pleural effusions and bilateral basilar infiltrates which may represent atelectasi s or pneumonia. Please correlate clinically. 3. Small the infiltrate in the periphery of the left upper lobe. 4. Results of this exam have been verbally communicated with provider. RADIATION DOSE DELIVERED: 605.13mGy.cm Total DLP DATA REPOSITORY: All CT scans at this facility are submitted to the National Radiology Data Registry (NRDR) Dose Index Registry (DIR) with the [employer] (ACR). RADIATION OPTIMIZATION: All CT scans at this facility use at least one of these dose optimization te chniques: automated exposure control; mA and/or kV adjustment per patient size (includes targeted exa ms where dose is matched to clinical indication); or iterative reconstruction.
[2022-01-09] MEDS: Ondansetron 4 MG/2 ML VIAL (12:47)
[2022-01-09 12:52] LABS: Abs Immature Grans 0.08 10^3/uL (0.0-0.06); Absolute Basophil Count 0.12 10^3/uL (0.0-0.2); Absolute Eosinophil Count 3.53 10^3/uL (0.0-0.7); Absolute Lymphocyte Count 1.85 10^3/uL (1.2-3.4); Absolute Monocyte Count 1.03 10^3/uL (0.1-0.8); Absolute Neutrophil Count 3.63 10^3/uL (1.2-6.7); Basophils % 1.2; Eosinophils % 34.5; HCT 32.8 % (40.0-50.0); HGB 10.1 g/dL (13.5-17.5); Immature Grans % 0.8; Lymphocytes % 18.1; MCH 30.2 pg (27.0-33.0); MCHC 30.8 % (32.0-36.0); MCV 98.2 fL (80-95); MPV 8.8 fL (8.0-11.0); Monocytes % 10.1; Neutrophils % 35.3; Nucleated RBC 0 %; Platelet Count 289 10^3/uL (130-400); RBC 3.34 10^6/uL (4.36-5.78); RDW 13.6 % (11.8-14.1); RDW-SD 48.5 fL; WBC 10.24 10^3/uL (4.4-10.8)
--- NOTE | 2022-01-09 12:53 | ED.GENADUL_ITS ---
Discharge Plan Disposition Patient Disposition: HOME Condition: Stable Discharge Details Clinical Impression: Pulmonary embolism on right, Superficial thrombophlebitis of right leg Primary Care Provider: Nat Vu ED Provider: Africa La Home Meds and New Rx's Prescriptions: [place] DVT-PE Treat 30D Start 5 mg (74 tabs) tablets,dose pack See Rx Instructions .ROUTE .COMPLEX Qty: 74 0RF Rx Instructions: orally per package directions. Take 10mg Twice Daily x 7 days then 5 mg daily No Action fluticasone propionate [Allergy Relief (fluticasone)] 50 mcg/actuation spray,suspension 2 spray TACHO DAILY PRN0RF Label Comments: not recently tamsulosin [Flomax] 0.4 mg capsule 0.8 mg PO DAILY Qty: 180 3RF finasteride 5 mg tablet 5 mg PO DAILY Qty: 90 3RF acetaminophen [Tylenol Extra Strength] 500 mg tablet 500 mg PO BID PRN0RF amiodarone 200 mg tablet 200 mg PO BID 0RF Label Comments: 01/09/22 this was started post of afib (he was d/c in [facility]) to be stopped 01/24/22 at post of visit with Dr. Corey RH aspirin 325 mg tablet 325 mg PO DAILY 0RF atorvastatin 40 mg tablet 80 mg PO DAILY 0RF furosemide 20 mg tablet 20 mg PO BID 0RF Label Comments: 01/09/22 on d/c summary from [facility] post Cabg RH potassium chloride 20 mEq tablet extended release 20 meq PO DAILY 0RF metoprolol tartrate 25 mg tablet 12.5 mg PO TID 0RF Label Comments: 01/09/22 per D/c summary [facility] for cabg RH loratadine 10 mg capsule 10 mg PO DAILY PRN0RF oxycodone-acetaminophen [Percocet] 5-325 mg tablet 1 tab PO Q6H PRN0RF duloxetine 30 mg capsule,delayed release(DR/EC) 60 mg PO DAILY 0RF Label Comments: has not started yet allopurinol 300 MG tablet 300 mg PO DAILY 0RF Discharge Instructions Instructions: Pulmonary Embolism (ED), Superficial Thrombophlebitis (ED) Additional Instructions: At this time the CT shows a blood small blood clot in the right upper lobe. He also have a superficial clot in your leg. I did speak with Dr. Reno and she recommends that you increase your Lasix to 40 mg twice daily. We are going to place you on Eliquis which is a blood thinner, take 10 mg daily for the first 7 days and then 5 mg twice daily thereafter. Please see Dr. Reno in her office in 3 weeks. Please return to the emergency department for any worsening shortness of breath, worsening chest pain, rectal bleeding or any concerns. Referrals: Sonia Reno MD [ [facility] STAFF PHYSICIAN] - 2 weeks (Please be seen in 3 weeks) Nat Vu [Primary Care Provider] - 1 week Discharge Data Discharge Date/Time-TO BE ENTERED AT DEPARTURE: 01/09/22 15:02 Medical Decision Making 71-year-old male presents to the ER after a follow-up appointment at the cardiology office here in the hospital. Patient was seen by Dr. Reno prior to arrival. Patient is status post open CABG on December 16 at [facility] she is concerned because his right leg is more swollen than his left leg recently she reports that his peripheral edema appears to be worse he does have expiratory wheezes bilaterally. She CHF work-up and a DVT work-up. Patient has other past medical history including coronary artery disease, erectile dysfunction, BPH and chronic pain. He does use an albuterol inhaler which he used today. Cardiac work-up ordered, right lower extremity venous Doppler, CTA of chest rule out PE/pneumonia. Differential diagnosis includes but not limited to pneumonia, CHF, cellulitis, DVT 1330: Verbal report from the medical coding technician negative for DVT. EXAM:? US LOWER EXTREMITY VENOUS RT CLINICAL HISTORY:? RLE swelling? TECHNIQUE:? Right lower extremity venous ultrasound performed using grayscale, color-flow, and spectral Doppler analysis. COMPARISON:? No exams were available for comparison FINDINGS: The right common femoral, femoral and popliteal veins demonstrate normal compressibility, augmentation, and color Doppler. The posterior tibial veins are patent.? The saphenofemoral junction is unremarkable.? There is no evidence of a Barragan cyst.? The soft tissues are unremarkable. There is a thrombus measuring 4 cm in length in a superficial vein in the calf. IMPRESSION: 1. No DVT. 2. Superficial thrombophlebitis. CTA Chest/PE Study: FINDINGS: The examination is limited due to patient motion artifact. Tracheobronchial tree: Patent where visualized. Pulmonary parenchyma: There is a small infiltrate in the periphery of the left upper lobe. There are small bilateral pleural effusions and subjacent infiltrates, right greater than left. These infiltrates may represent atelectasis or pneumonia. No architectural distortion. Pulmonary Arteries: There is a filling defect seen in a branch of the right upper lobe pulmonary artery suspicious for a nonocclusive thrombus. (Series 6, image 209). Otherwise the pulmonary arteries appear patent. Mediastinum and Serenity: No dominant adenopathy or fluid collection. The esophagus is unremarkable. Surgical clips are seen in the anterior mediastinum. Visualized thyroid gland: Unremarkable. Pleura: Please see above. No pneumothorax. Heart: The heart is not dilated. Coronary artery calcifications are present. There is no evidence of right heart strain. No pericardial effusion. Aorta: Thoracic aorta non-dilated. No evidence of dissection. Atherosclerosis. Upper abdomen: Diverticulosis of the colon is noted but no evidence of acute diverticulitis. Soft tissues: Unremarkable. Bones: Within normal limits for the patient's age.Sternal wires are in place. IMPRESSION: 1. There is a filling defect seen in a branch of a right upper lobe pulmonary artery suspicious for a pulmonary embolus. No evidence of right heart failure. 2. Small bilateral pleural effusions and bilateral basilar infiltrates which may represent atelectasis or pneumonia. Please correlate clinically. 3. Small the infiltrate in the periphery of the left upper lobe. 4. Results of this exam have been verbally communicated with provider. 1408: Call made to Dr. Reno Cardiology. I did discuss patient's CT result and she was able to review his lab values. She recommends increasing his Lasix to 40 mg twice daily starting Eliquis for anticoagulation and follow-up with her in her office in 3-weeks. She also recommends giving patient a one-time dose of IV Lasix here in the department. At this time I do feel as if patient can be discharged home. He does report that he feels better after the DuoNeb, I did discuss strict return instructions with him he verbalizes understanding. This text was generated using [employer] system, please disregard any oddities of phrase or misspellings. HPI General Mode of arrival: wheelchair . Date/Time Provider Initiated Documentation: 01/09/22 12:28 . Limitations to Documentation: no limitations . Information obtained by: patient, RN/MD (Dr. Reno) and RN notes reviewed . HPI Narrative: 71-year-old male presents to the ER after a follow-up appointment at the cardiology office here in the hospital. Patient was seen by Dr. Reno prior to arrival. Patient is status post open CABG on December 16 at [facility] she is concerned because his right leg is more swollen than his left leg recently she reports that his peripheral edema appears to be worse he does have expiratory wheezes bilaterally. She CHF work-up and a DVT work-up. Patient has other past medical history including coronary artery disease, erectile dysfunction, BPH and chronic pain. He does use an albuterol inhaler which he used today. Related Data Home Medications Medication Instructions Recorded Confirmed allopurinol 300 mg tablet 300 mg PO DAILY 03/18/16 01/09/22 fluticasone propionate 50 2 spray TACHO DAILY PRN 10/05/19 01/09/22 mcg/actuation nasal spray,suspension (Allergy Relief (fluticasone)) acetaminophen 500 mg tablet 500 mg PO BID PRN tab 07/04/20 01/09/22 (Tylenol Extra Strength) finasteride 5 mg tablet 5 mg PO DAILY #90 tab-cap 04/10/21 01/09/22 tamsulosin 0.4 mg capsule (Flomax) 0.8 mg PO DAILY #180 cap 04/10/21 01/09/22 loratadine 10 mg capsule 10 mg PO DAILY PRN 10/21/21 01/09/22 oxycodone-acetaminophen 5 mg-325 1 tab PO Q6H PRN 10/21/21 01/09/22 mg tablet (Percocet) duloxetine 30 mg capsule,delayed 60 mg PO DAILY cap 11/18/21 01/09/22 release amiodarone 200 mg tablet 200 mg PO BID 01/09/22 apixaban 5 mg (74 tabs) tablets in See Rx Instructions .ROUTE 01/09/22 a dose pack (Eliquis DVT-PE Treat .COMPLEX #74 dose pk 30D Start) aspirin 325 mg tablet 325 mg PO DAILY 01/09/22 atorvastatin 40 mg tablet 80 mg PO DAILY tab 01/09/22 01/09/22 furosemide 20 mg tablet 20 mg PO BID 01/09/22 metoprolol tartrate 25 mg tablet 12.5 mg PO TID tab 01/09/22 potassium chloride 20 mEq 20 meq PO DAILY 01/09/22 tablet,extended release Previous Rx's Medication Instructions Recorded finasteride 5 mg tablet 5 mg PO DAILY #90 tab-cap 04/10/21 tamsulosin 0.4 mg capsule (Flomax) 0.8 mg PO DAILY #180 cap 04/10/21 apixaban 5 mg (74 tabs) tablets in See Rx Instructions .ROUTE 01/09/22 a dose pack (Eliquis DVT-PE Treat .COMPLEX #74 dose pk 30D Start) Allergies Allergy/AdvReac Type Severity Reaction Status Date / Time No Known Drug Allergies Allergy Unverified 01/09/22 12:34 General Stated Complaint: Vascular MAYO: 2 Review of Systems Narrative: Constitutional: Negative for weight loss, alert and oriented, well groomed, body habitus, appears comfortable. HEENT: Denies trauma, headaches, blurry vision, nasal discharge, sore throat, trouble swallowing. Chest: Denies palpitations, irregular rhythm, see HPI. Respiratory: Denies cough, hemoptysis. GI: Denies abdominal pain, nausea, vomiting, diarrhea, constipation. : Denies dysuria, hematuria, flank pain, rectal bleeding. Neuro: Denies dizziness, blurry vision, weakness, syncope, headache or facial numbness. Hematologic: Denies easy bruising, intolerance to heat or cold, hair loss. Extremities: Right lower extremity. Edematous, slightly erythemic larger than the left. PFSH All Active Problems (Updated 01/09/22 @ 14:37 by Africa La) Pulmonary embolism on right (Acute) Superficial thrombophlebitis of right leg (Acute) S/P CABG (coronary artery bypass graft) (Acute) 12/16/21 [facility] Dr. Cobos, developed post of Afib on amio x 1 month RH Shortness of breath (Acute) Edema of right lower leg (Acute) Preoperative cardiovascular examination (Acute) Abnormal nuclear stress test (Acute) Coronary artery disease (Chronic) Throat pain (Acute) Erectile dysfunction (Acute) BPH w urinary obs/LUTS (Acute) Chronic prescription opiate use (Acute) Chronic pain (Acute 03/16/17) Medical History Chronic low back pain Chronic renal insufficiency Cough Difficulty swallowing, mixes medication with food Gout HLD (hyperlipidemia) Hypertension Obesity DIAMOND (obstructive sleep apnea) Peripheral neuropathy Post-laminectomy syndrome Prediabetes Sore throat Surgical History History of back surgery lamenectomy Family History Brother Cancer Sister COPD (chronic obstructive pulmonary disease) Asthma Social History Smoking/Tobacco Use Status: Never Smoking risk assessment performed?: Yes Alcohol Intake: current Alcohol Intake frequency: 0-2 drinks per day Drug use: Occasionally Substance use type: marijuana Details: Marijuana twice weekly. Special telly needs: No Do you feel safe at home: Yes Do you feel safe in your relationship?: Yes Exam Narrative Exam Narrative: Constitutional: Alert and oriented x3. Appears stated age. Overweightbody habitus. Head: Normocephalic, no trauma. Eyes: Pupils PERRL, Red reflex noted, EOM's intact. Eyelids symmetrical without lesions, discharge, or swelling. ENT: Bilateral TM's WNL, External ear normal to inspection, no mastoid TTP, swelling, or erythema, Nasal turbinates WNL, no nasal discharge. Normal dentition, Posterior pharynx WNL, no exudate. Chest: RRR, Normal S1, S2, distal pulses intact. Resp: Scattered expiratory wheezes noted bilaterally. Abdomen: Soft, non-distended, Normoactive bowel sounds all 4 quads. Musculoskeletal: Normal gait, 5/5 strength to all four extremities. Healing wound noted to the medial aspect of the right knee, there is some erythemic, edema to right lower extremity. Skin: No suspicious rashes or lesions. Capillary refill less than 2 sec. Neurologic: Cranial nerves II-XII intact. Alert and oriented x 3. Motor: No deficits noted. Sensory: Intact bilaterally all 4 extremities. Reflexes: DTR's intact bilaterally.. Hematologic/Lymphatic: No ecchymosis, no lymphadenopathy. Course Vital Signs Vital signs: Vital Signs Temperature 36.7 C 01/09/22 12:27 Pulse 76 01/09/22 12:27 Respiratory Rate 12 01/09/22 12:27 Blood Pressure 131/68 01/09/22 12:27 Pulse Oximetry 96 01/09/22 12:27 Temperature 36.7 C 01/09/22 12:27 Temperature Source Skin 01/09/22 12:27 Pulse 76 01/09/22 12:27 Respiratory Rate 12 01/09/22 12:27 Respiratory Effort Labored 01/09/22 12:40 Respiratory Depth Normal 01/09/22 12:40 Respiratory Pattern Normal 01/09/22 12:40 Blood Pressure 131/68 01/09/22 12:27 Pulse Oximetry 96 01/09/22 12:27 Oxygen Delivery Method Room Air 01/09/22 12:27 Oxygen Flow Rate 0 01/09/22 12:27 Pain Level 0 01/09/22 12:27 PAWSS Have you Been Recently Intoxicated or Drunk Within the Last 30 days?: No Have you Ever Experienced Previous Episodes of Alcohol Withdrawal?: No Have you ever Experienced Withdrawal Seizures?: No Have you ever Experienced Delirium Tremens(DT)s?: No Have you ever undergone Alcohol Rehabilitation Treatment (i.e, inpt ot outpatient treatment programs)?: No Have you ever Experienced Blackouts?: No Have you ever Combined Alcohol with other Downers within the last 90 days?: No Have you ever Combined Alcohol with any other Substance of Abuse during the last 90 days?: No Positive Blood Alcohol level on Presentation? [PCS.BAL]: No Evidence of Increased Autonomic Activity (i.e. HR>120, tremor, sweating, agitation, nausea)?: No Result: 0
[2022-01-09 13:12] LABS: Diff Comment Agrees w/ Instrument; RBC Morphology Normal
[2022-01-09 13:15] LABS: ALT 22 U/L (16-63); AST 21 U/L (15-37); Albumin 3.2 g/dL (3.4-5.0); Alkaline Phosphatase 88 U/L (46-116); Anion Gap 5.2 mmol/L (3-11); BUN 16 mg/dL (7-18); Bilirubin, Total 0.4 mg/dL (0.2-1.0); CO2 29.8 mmol/L (21.0-32.0); CREATININE 1.2 mg/dL (0.70-1.30); Calcium 8.7 mg/dL (8.5-10.1); Chloride 104 mmol/L (98-107); Estimated GFR 59.68 (mL/min/1.73m2); Glucose 149 mg/dL (74-106); Magnesium 2.1 mg/dL (1.8-2.4); NT-proBNP 1489 pg/mL (<300); Potassium 4.3 mmol/L (3.5-5.1); Sodium 139 mmol/L (136-145); Total Protein 7.3 g/dL (6.4-8.2); Troponin I < 50 ng/L (<or=60)
[2022-01-09] MEDS: Omnipaque 350 MG/ML 100 ML BTL IJ (13:49)
[2022-01-09] MEDS: Albuterol/Ipratropium 3 ML UPD VIAL UPD (14:23)
[2022-01-09] MEDS: Apixaban 5 MG TAB 10 MG PO (14:23)
[2022-01-09] MEDS: Furosemide 40 MG/4 ML VIAL IVP (14:23)
--- NOTE | 2022-01-09 14:51 | NUR.NOTE ---
Nursing Note: Referral faxed to [facility] Cardiology for follow up of PE; in the next [address] Reno was consulted on this pt. Vee Iraheta
== END 2022-01-09 15:02 | disposition home or self-care (01) ==
PROVIDERS: Emergency Provider Registered Nurse Emergency; PCP Family Medicine
DX: I26.99 Other pulmonary embolism without acute cor pulmonale; I80.01 Phlebitis and thrombophlebitis of superficial vessels of right lower extremity; R22.41 Localized swelling, mass and lump, right lower limb; Z86.79 Personal history of other diseases of the circulatory system; R06.02 Shortness of breath; Z95.1 Presence of aortocoronary bypass graft
CPT/HCPCS: 36415; 71275; 80053; 93005; 96374; 96375; 99214; 99215; 99285; 83735; 83880; 84484; 85025; 93010; 93971; 99284; J1940; J2405; J3490; J7620

== ENCOUNTER → 2022-01-31 14:14 | Outpatient (BNVA) | payer MEDICARE, BC, SELFPAY | PROVIDERS: PCP Family Medicine; Referring Provider Family Medicine; Visit Provider Internal Medicine Cardiovascular Disease | DX: I80.01 Phlebitis and thrombophlebitis of superficial vessels of right lower extremity (principal); I26.99 Other pulmonary embolism without acute cor pulmonale; I10 Essential (primary) hypertension; Z95.1 Presence of aortocoronary bypass graft; I25.10 Atherosclerotic heart disease of native coronary artery without angina pectoris | CPT/HCPCS: 99214; 99213 ==

== ENCOUNTER → 2022-04-10 08:37 | Outpatient (BNVA) | payer MEDICARE, BC, SELFPAY | PROVIDERS: PCP Family Medicine; Referring Provider Nurse Practitioner Family; Visit Provider Nurse Practitioner Gerontology | DX: N40.1 Benign prostatic hyperplasia with lower urinary tract symptoms (principal); N13.8 Other obstructive and reflux uropathy | CPT/HCPCS: 51798; 99214 ==

== ENCOUNTER → 2022-06-02 13:54 | Outpatient (BNVA) | payer MEDICARE, BC, SELFPAY | PROVIDERS: PCP Family Medicine; Referring Provider Family Medicine; Visit Provider Internal Medicine Cardiovascular Disease | DX: I25.10 Atherosclerotic heart disease of native coronary artery without angina pectoris (principal); R60.0 Localized edema; R06.02 Shortness of breath; I10 Essential (primary) hypertension; Z95.1 Presence of aortocoronary bypass graft | CPT/HCPCS: 99214; 99213 ==

== ENCOUNTER → 2022-12-08 10:16 | Outpatient (BNVA) | payer MEDICARE, BC, SELFPAY | PROVIDERS: PCP Family Medicine; Visit Provider Internal Medicine Cardiovascular Disease | DX: I25.10 Atherosclerotic heart disease of native coronary artery without angina pectoris (principal); R06.09 Other forms of dyspnea; I10 Essential (primary) hypertension; E78.5 Hyperlipidemia, unspecified; Z95.1 Presence of aortocoronary bypass graft | CPT/HCPCS: 99214 ==

== ENCOUNTER → 2023-04-16 08:31 | Outpatient (BNVA) | payer MEDICARE, BC, SELFPAY | PROVIDERS: PCP Family Medicine; Visit Provider Nurse Practitioner Gerontology | DX: N40.1 Benign prostatic hyperplasia with lower urinary tract symptoms (principal); R39.89 Other symptoms and signs involving the genitourinary system | CPT/HCPCS: 36415; 51798; 99213 ==

== ENCOUNTER 2023-04-16 09:05 | Outpatient (REF) | payer MEDICARE, BC, SELFPAY | END 2023-04-16 09:06 | disposition home or self-care (01) | LOC: LBN 09:05 | PROVIDERS: Nurse Practitioner Gerontology; PCP Family Medicine; Visit Provider Urology | DX: N40.1 Benign prostatic hyperplasia with lower urinary tract symptoms (principal); N13.8 Other obstructive and reflux uropathy | CPT/HCPCS: 84153 ==

== ENCOUNTER → 2023-06-12 11:09 | Outpatient (BNVA) | payer MEDICARE, BC, SELFPAY | PROVIDERS: PCP Family Medicine; Referring Provider Family Medicine; Visit Provider Internal Medicine Cardiovascular Disease | DX: I25.810 Atherosclerosis of coronary artery bypass graft(s) without angina pectoris (principal); M54.50 Low back pain, unspecified; G89.29 Other chronic pain; I10 Essential (primary) hypertension; E78.5 Hyperlipidemia, unspecified | CPT/HCPCS: 99214 ==

== ENCOUNTER 2024-06-23 08:37 | Outpatient (CLI) | payer MEDICARE, BC, SELFPAY | END 2024-06-23 08:38 | disposition home or self-care (01) | LOC: DI.CARD 08:38 | PROVIDERS: PCP Family Medicine; Visit Provider Internal Medicine Cardiovascular Disease | DX: I25.10 Atherosclerotic heart disease of native coronary artery without angina pectoris (principal) | CPT/HCPCS: 93010 ==